=== PATIENT | female | born 1980 ===

== ENCOUNTER 2021-03-05 20:47 | Emergency (ER) | payer OTHER ==
[~2021-03-05] VITALS: Ht 157.5 cm; Wt 78.3 kg
[2021-03-05 21:27] LABS: BASOPHILS % (AUTO) 1 % (0-1); EOSINOPHILS % (AUTO) 4 % (1-7); LYMPHOCYTES % (AUTO) 33 % (22-44); MEAN CORPUSCULAR HEMOGLOBIN 32.5 pg (27.0-34.8); MEAN CORPUSCULAR HGB CONC 34.6 g/dL (32.4-35.8); MEAN PLATELET VOLUME 7.8 fL (7.4-10.4); MONOCYTES % (AUTO) 6 % (2-9); NEUTROPHILS % (AUTO) 56 % (42-75); PLATELET COUNT 279 x10^3/uL (130-400); RED BLOOD COUNT 4.13 x10^6/uL (3.82-5.3)
[2021-03-05] MEDS ORDERED: SODIUM CHLORIDE 0.9% 1,000ML IVBOLUS ONE (21:30)
[2021-03-05] MEDS ORDERED: SODIUM CHLORIDE FLUSH 10ML SYR IVF ONE (21:30)
[2021-03-05 21:40] LABS: ALANINE AMINOTRANSFERASE 27 U/L (12-78); ALBUMIN 3.4 g/dL (3.4-5.0); ANION GAP 5 mmol/L (5-15); CALCIUM 8.9 mg/dL (8.5-10.1); CHLORIDE 107 mmol/L (98-107); CREATININE 0.73 mg/dL (0.55-1.02)
[2021-03-05 21:45] LABS: ALKALINE PHOSPHATASE 76 U/L (45-117); BILIRUBIN,TOTAL 0.2 mg/dL (0.2-1.0); TOTAL PROTEIN 6.9 g/dL (6.4-8.2); TROPONIN I < 0.015 ng/mL (0.000-0.045)
--- NOTE | 2021-03-05 21:49 | NUR ---
REPORT FROM CHANDNI LOWRY. ELENA COLLECTED AND SENT TO LAB.
[2021-03-05 21:53] VITALS: BP 120/74
--- NOTE | 2021-03-05 21:54 | NUR ---
PT REPORTS "I FEEL BETTER" AND IS ASKING IF LABS ARE BACK SO SHE CAN GO HOME.
[2021-03-05 22:14] LABS: MICROSCOPIC INDICATED
--- NOTE | 2021-03-06 00:43 | NUR ---
F/U AND D/C INSTRUCTIONS WITH PRESCRIPTIONS GIVEN TO PT AND SHE V/U. PIV D/C'D FROM LEFT AC AND CATH TIP INTACT. PT AMBULATED TO DISCHARGE DESK.
== END 2021-03-06 00:45 | disposition home or self-care (01) ==
LOC: ED 23:59
DX: R55 Syncope and collapse (principal); J15.9 Unspecified bacterial pneumonia; Z20.822 Contact with and (suspected) exposure to COVID-19
CPT/HCPCS: 36415; 71045; 80053; 80320; 81001; 84484; 84703; 85025; 93005; 99285; J7030; U0003; U0005; G0480